=== PATIENT | female | born 1965 | race Caucasian/White ===

== ENCOUNTER 2016-05-18 23:54 | Emergency (ER) | payer SELFPAY ==
[~2016-05-18] VITALS: Ht 175.3 cm; Wt 68.0 kg
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
--- NOTE | 2016-05-19 00:15 | NUR ---
DR. CR AT BEDSIDE FOR EVAL.
[2016-05-19] MEDS ORDERED: ONDANSETRON 4 MG TAB.RAPDIS ONE (00:18)
[2016-05-19] MEDS ORDERED: KETOROLAC TROMETHAMINE INJ 30 MG/ML VIAL ONE (00:18)
[2016-05-19] MEDS ORDERED: HYDROMORPHONE 1 MG/1 ML DISP.SYRIN ONE (00:23)
[2016-05-19] MEDS ORDERED: HYDROMORPHONE 1 MG/1 ML DISP.SYRIN IM ONE (00:30)
[2016-05-19] MEDS ORDERED: KETOROLAC TROMETHAMINE INJ 60 MG/2 ML VIAL IM ONE (00:30)
[2016-05-19] MEDS ORDERED: ONDANSETRON 4 MG TAB.RAPDIS SL ONE (00:30)
--- NOTE | 2016-05-19 00:32 | NUR ---
Patient discharged to home in stable condition. Written and verbal after care instructions given. Patient verbalizes understanding of instruction. ambulatory with a steady gait. instrcuted pt not to drive. pt verbalize understanding.
[2016-05-19 00:33] VITALS: BP 117/83
== END 2016-05-19 00:33 | disposition home or self-care (01) ==
LOC: ER 23:57
DX: M54.5 Low back pain (principal)
CPT/HCPCS: 96372 ×2; 99284; A4606; J1170; J1885; Q0162; Z7610

== ENCOUNTER 2018-08-07 20:39 | Emergency (ER) | payer OTHER ==
[~2018-08-07] VITALS: Ht 175.3 cm; Wt 81.6 kg
[2018-08-07 20:46] VITALS: BP 128/86
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
== END 2018-08-07 21:16 | disposition home or self-care (01) ==
LOC: ER 20:45
DX: M25.562 Pain in left knee (principal); M25.561 Pain in right knee; F17.200 Nicotine dependence, unspecified, uncomplicated; M54.30 Sciatica, unspecified side